=== PATIENT | male | born 1990 | race Caucasian/White ===

== ENCOUNTER 2016-05-24 08:08 | Emergency (ER) | payer SELFPAY ==
[~2016-05-24] VITALS: Ht 175.3 cm; Wt 85.0 kg
[2016-05-24 08:11] VITALS: BP 147/95; PULSE 87; RESP 14; TEMP 98.1; O2SAT 99
--- NOTE | 2016-05-24 08:24 | PD ---
HPI Chief Complaint: Back/ Neck Pain or Injury Time Seen by Provider: 08:24 Travel History International Travel<30 days: No Contact w/Intl Traveler<30days: No Traveled to known affect area: No History of Present Illness HPI 26-year-old male, with history of chronic low back pain, presents to the emergency Department with complaint of low back pain last few days. He denies traumatic injury. 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 Denies encopresis, incontinence, saddle anesthesias. Denies paresthesias, loss of sensation, decreased range of motion, decreased strength of bilateral lower extremity's. Denies difficulty with ambulation. Denies IV drug use. Denies cancer. Denies fever, chills, nausea, vomiting. Has not taken any medications or tried any treatments to review his symptoms. Pain is worse with certain movements and walking. Pain radiates down the back of his left leg. Symptoms are consistent with past exacerbations of low back pain. Allergies to codeine. No other modifying factors or associated signs and symptoms. PFSH Past Medical History ADHD: Yes Cancer: No Diminished Hearing: No Psychiatric: Yes (PT HAS ADHD) Seizures: No Thyroid Disease: No Ulcer: No Social History Alcohol Use: No Tobacco Use: Yes (1 PACK IN THREE DAYS) Substance Use: No Allergies-Medications (Allergen,Severity, Reaction): Coded Allergies: Codeine (Verified Allergy, Mild, 06/11/07) Reported Meds & Prescriptions Reported Meds & Active Scripts Active Robaxin (Methocarbamol) 500 Mg Tab 500 Mg PO QID PRN Ibuprofen 800 Mg Tab 800 Mg PO Q6HR PRN Review of Systems Except as stated in HPI: all other systems reviewed are Neg Physical Exam Narrative GENERAL: Well-nourished, well-developed male patient, in no acute distress; afebrile, nontoxic-appearing SKIN: Warm and dry. HEAD: Atraumatic. Normocephalic. EYES: Pupils equal and round. No scleral icterus. No injection or drainage. ENT: Mucosa pink and moist. Airway patent. NECK: Trachea midline. CARDIOVASCULAR: Regular rate and rhythm. No murmur appreciated. RESPIRATORY: No accessory muscle use. Breath sounds clear and equal bilaterally. GASTROINTESTINAL: Abdomen soft, non-tender, nondistended. Positive bowel sounds. No hepato-splenomegaly, or palpable masses. No guarding. MUSCULOSKELETAL: Bilateral lower extremities supple and non-tense with 2+ pedal pulses and sensory intact; with full range of motion and 5/5 strength. Active dorsiflexion and extension of bilateral feet. Right straight leg raise is negative for low back pain. Left straight leg raise is positive for low back pain. Ambulatory with normal gait. Sitting up in bed at 90. No obvious deformities. No clubbing. No cyanosis. No edema. BACK: No midline point tenderness on palpation of the lumbar spine. Tenderness on palpation of left paraspinal and iliosacral area. No obvious deformities. NEUROLOGICAL: Awake and alert. Oriented 3. No obvious cranial nerve deficits. Motor grossly within normal limits. Normal speech. Moves all extremities. 5/5 strength to all extremities. Sensory intact. PSYCHIATRIC: Appropriate mood and affect; insight and judgment normal. Data Data Last Documented VS Vital Signs Date Time Temp Pulse Resp B/P Pulse Ox O2 Delivery O2 Flow Rate FiO2 05/24/16 08:11 98.1 87 14 147/95 99 Orders Ketorolac Inj (Toradol Inj) (05/24/16 08:30) Orphenadrine Inj (Norflex Inj) (05/24/16 08:30) [facility] Medical Decision Making Medical Screen Exam Complete: Yes Emergency Medical Condition: Yes Medical Record Reviewed: Yes Differential Diagnosis Acute exacerbation of chronic low back pain, sciatica, low back strain Narrative Course 26-year-old male physical exam and history of present illness consistent with acute exacerbation of chronic low back pain and left-sided sciatica. Denies new or recent injury. No midline point tenderness on palpation of the lumbar spine. Denies IV drug use. Denies cancer. Denies encopresis, incontinence, saddle anesthesias. Toradol and Norflex administered in the ER. Ibuprofen and Robaxin prescribed for home. Patient verbalizes understanding and agreement with treatment plan. Patient is medically cleared and stable for discharge. Discussed reasons to return to the emergency department. Instructed patient to follow up with primary care provider. Patient agrees with treatment plan. The patients vital signs are stable and the patient is stable for outpatient follow- up and treatment. Patient discharged home, stable and in no acute distress. Diagnosis Primary Impression: Acute exacerbation of chronic low back pain Additional Impression: Left sided sciatica Referrals: Primary Care Physician Patient Instructions: Acute Low Back Pain (ED), General Instructions, Sciatica (ED) Departure Forms: Tests/Procedures, Work Release Enter return to work date: May 25, 2016 Additional Instructions: Tylenol or ibuprofen as directed and as needed for pain Robaxin as prescribed and as needed for muscle spasm Heating pad and/or ice to affected area to reduce pain Avoid aggravating activities; increase activity as tolerated Follow-up with primary care provider Return to emergency department immediately with worsening of symptoms Med/Other Pt SpecificInfo: Prescription(s) given Scripts Methocarbamol (Robaxin)500 Mg [id number] Mg PO QID PRN (MUSCLE SPASM) #30 TAB Ref 0 Prov:Samara Dalton 05/24/16 Ibuprofen 800 Mg [id number] Mg PO Q6HR PRN (PAIN) #30 TAB Ref 0 Prov:Samara Dalton 05/24/16 Disposition: 01 DISCHARGE HOME Condition: Stable Samara Dalton May 24, 2016 08:24
[2016-05-24] MEDS ORDERED: IBUP800T23 PO (08:27)
[2016-05-24] MEDS ORDERED: ROBA500T PO (08:27)
[2016-05-24] MEDS ORDERED: ORPHENADRINE INJ 60 MG/2 ML AMP IM ONE (08:30)
[2016-05-24] MEDS ORDERED: KETOROLAC TROMETHAMINE 60 MG/2 ML (IM) VIAL IM ONE (08:30)
== END 2016-05-24 08:40 | disposition home or self-care (01) ==
LOC: NEPB 08:08
DX: M54.5 Low back pain (principal); G89.29 Other chronic pain; M54.32 Sciatica, left side; Z72.0 Tobacco use; Z86.59 Personal history of other mental and behavioral disorders
CPT/HCPCS: 96372; 99283; J1885; J2360

== ENCOUNTER 2016-06-02 05:46 | Emergency (ER) | payer SELFPAY ==
[~2016-06-02] VITALS: Ht 175.3 cm; Wt 83.5 kg
[~2016-06-02 05:46] MED LIST: IBUP800T23 PO; ROBA500T PO
[2016-06-02 05:50] VITALS: BP 124/86; PULSE 83; RESP 16; TEMP 98.3; O2SAT 98
[2016-06-02 06:03] VITALS: BP 124/86; PULSE 83; RESP 16; TEMP 98.3; O2SAT 98
[2016-06-02] MEDS ORDERED: KETOROLAC TROMETHAMINE 60 MG/2 ML (IM) VIAL IM ONE (06:45)
--- NOTE | 2016-06-02 06:47 | PD ---
HPI Chief Complaint: Pain: Acute or Chronic Time Seen by Provider: 06:36 Travel History International Travel<30 days: No Contact w/Intl Traveler<30days: No Traveled to known affect area: No History of Present Illness HPI 26-year-old male presents to the emergency department for exacerbation of chronic recurrent low back pain. Patient reports that he has a history of disc disease and causes him to have referred pain to the lower extremities. Patient denies any recent injury. Patient denies any bladder or bowel dysfunction or saddle anesthesia. Patient denies any numbness tingling or weakness of the lower extremity. Patient states that he is currently in a drug rehabilitation program 6 months to the [place] that does not allow the patient's to have any medications unless they're administered by a physician through a clinic or ER visit. Patient states that he is not allowed reportedly to have access to Tylenol or ibuprofen at the rehabilitation facility therefore was brought to the emergency room for medication. Patient denies other concerns or complaints. Patient reports his discomfort as 7/10 in intensity. Patient is able to ambulate about the exam room and stand up and down to sit up on the exam table with fluid movement but states his pain is his chronic pain and is here specifically to be given a one-time dose of medication for his discomfort and that he is returning to the rehabilitation facility. Patient presents with paperwork from the rehabilitation facility to be signed to confirm the patient was evaluated and treated in the emergency department. [facility] Past Medical History Narrative Medical ADHD, chronic pain syndrome, low back pain, tobacco use; nursing notes reviewed ADHD: Yes Cancer: No Diminished Hearing: No Psychiatric: Yes (PT HAS ADHD) Seizures: No Thyroid Disease: No Ulcer: No Tetanus Vaccination: < 5 Years Influenza Vaccination: No Past Surgical History Other Surgery: No Social History Alcohol Use: No Tobacco Use: Yes (1PPD) Substance Use: No Allergies-Medications (Allergen,Severity, Reaction): Coded Allergies: No Known Allergies (Unverified , 06/02/16) Reported Meds & Prescriptions Reported Meds & Active Scripts Active No Active Prescriptions or Reported Medications Review of Systems Except as stated in HPI: all other systems reviewed are Neg General / Constitutional: No: Fever HENT: No: Congestion Cardiovascular: No: Chest Pain or Discomfort Respiratory: No: Shortness of Breath Gastrointestinal: No: Abdominal Pain Genitourinary: No: Flank Pain Musculoskeletal: Positive: Myalgias, Arthralgias, Pain (chronic recurrent low back pain) Skin: No Rash Neurologic: No: Weakness Psychiatric: No: Anxiety Endocrine: No: Heat Intolerance Hematologic/Lymphatic: No: Easy Bruising Physical Exam Narrative GENERAL: Well-developed well-nourished male in no acute distress no respiratory distress GCS 15 SKIN: Warm and dry. HEAD: Normocephalic. EYES: No scleral icterus. No injection or drainage. NECK: Supple, trachea midline. No JVD or lymphadenopathy. CARDIOVASCULAR: Regular rate and rhythm without murmurs, gallops, or rubs. RESPIRATORY: Breath sounds equal bilaterally. No accessory muscle use. GASTROINTESTINAL: Abdomen soft, non-tender, nondistended. MUSCULOSKELETAL: No cyanosis, or edema. BACK: Nontender without obvious deformity. No CVA tenderness. Negative straight leg raising. DTRs 2+ and symmetric bilateral upper extremity is in lower extremities. Data Data Last Documented VS Vital Signs Date Time Temp Pulse Resp B/P Pulse Ox O2 Delivery O2 Flow Rate FiO2 06/02/16 06:06 16 06/02/16 06:03 98.3 83 124/86 98 06/02/16 05:50 Room Air Orders Ketorolac Inj (Toradol Inj) (06/02/16 06:45) MDM Medical Decision Making Medical Screen Exam Complete: Yes Emergency Medical Condition: Yes Medical Record Reviewed: Yes Differential Diagnosis Chronic pain syndrome, sciatica, lumbar radiculopathy Narrative Course Patient presents with chronic recurrent low back pain related to history of lumbar disc disease requesting pain medication that is nonnarcotic as he is part of a rehabilitation program that specifically states he cannot have narcotics and reports that he is not able to receive ibuprofen or acetaminophen at the facility unless administered by a physician. Patient offered a one-time dose of Toradol 60 mg IM which she accepts. Patient is otherwise stable for outpatient management no prescriptions provided. Diagnosis Primary Impression: Acute exacerbation of chronic low back pain Referrals: Primary Care Physician call for appointment Patient Instructions: General Instructions Additional Instructions: Follow-up with your primary care provider as needed Return to the emergency department for any concerns or change in condition Scripts No Active Prescriptions or Reported Meds Disposition: 01 DISCHARGE HOME Condition: Stable Corina Damon MD Jun 02, 2016 06:47
[2016-06-02 06:59] VITALS: BP 136/80
== END 2016-06-02 07:03 | disposition home or self-care (01) ==
LOC: PHED 05:46
DX: M54.5 Low back pain (principal); G89.29 Other chronic pain; F17.200 Nicotine dependence, unspecified, uncomplicated; Z87.39 Personal history of other diseases of the musculoskeletal system and connective tissue; Z86.59 Personal history of other mental and behavioral disorders
CPT/HCPCS: 96372; 99283; J1885

== ENCOUNTER 2016-06-04 12:21 | Emergency (ER) | payer SELFPAY ==
[~2016-06-04] VITALS: Ht 175.3 cm; Wt 86.0 kg
[2016-06-04 12:23] VITALS: BP 180/119; PULSE 75; RESP 16; TEMP 98; O2SAT 99
[2016-06-04] MEDS ORDERED: IBUP800T23 PO (16:08)
== END 2016-06-04 12:26 | disposition left against medical advice (07) ==
LOC: NED 12:21
DX: M54.9 Dorsalgia, unspecified (principal)
CPT/HCPCS: 99281

== ENCOUNTER 2016-06-04 15:12 | Emergency (ER) | payer SELFPAY ==
[~2016-06-04] VITALS: Ht 175.3 cm; Wt 90.0 kg
[2016-06-04 15:14] VITALS: BP 175/102; PULSE 78; RESP 18; TEMP 97.8; O2SAT 100
[2016-06-04] MEDS ORDERED: IBUP800T23 PO (16:08)
--- NOTE | 2016-06-04 16:08 | PD ---
HPI Chief Complaint: Pain: Acute or Chronic Time Seen by Provider: 16:03 Travel History International Travel<30 days: No Contact w/Intl Traveler<30days: No Traveled to known affect area: No History of Present Illness HPI Patient is a 26-year-old male presenting to the emergency department for a duplicate prescription for ibuprofen. Patient states he is residing at the [facility] drug treatment program and is not allowed to have medications. He states he was prescribed ibuprofen 2 weeks ago but they took the prescription and lost it. Patient was evaluated twice since that time for low back pain. He has no new injury or trauma. He reports a history of herniated and bulging disks. He denies any numbness tingling in his extremities, no bladder or bowel incontinent, no saddle paresthesia. PFSH Past Medical History ADHD: Yes Cancer: No Diminished Hearing: No Psychiatric: Yes (PT HAS ADHD) Seizures: No Thyroid Disease: No Ulcer: No Past Surgical History Other Surgery: No Social History Alcohol Use: No Tobacco Use: Yes (1PPD) Substance Use: No Allergies-Medications (Allergen,Severity, Reaction): Coded Allergies: No Known Allergies (Unverified , 06/02/16) Reported Meds & Prescriptions Reported Meds & Active Scripts Active No Active Prescriptions or Reported Medications Review of Systems Except as stated in HPI: all other systems reviewed are Neg Musculoskeletal: Positive: Myalgias Physical Exam Narrative GENERAL: Well-developed, well-nourished, alert male. Observed ambulating in the emergency department without difficulty. SKIN: Warm and dry. HEAD: Normocephalic. EYES: No scleral icterus. No injection or drainage. NECK: Supple, trachea midline. No JVD or lymphadenopathy. CARDIOVASCULAR: Regular rate and rhythm without murmurs, gallops, or rubs. RESPIRATORY: Breath sounds equal bilaterally. No accessory muscle use. GASTROINTESTINAL: Abdomen soft, non-tender, nondistended. MUSCULOSKELETAL: No cyanosis, or edema. BACK: Nontender without obvious deformity. No CVA tenderness. Data Data Last Documented VS Vital Signs Date Time Temp Pulse Resp B/P Pulse Ox O2 Delivery O2 Flow Rate FiO2 06/04/16 15:14 97.8 78 18 175/102 100 Room Air MDM Medical Decision Making Medical Screen Exam Complete: Yes Emergency Medical Condition: No Interpretation(s) Vital Signs Date Time Temp Pulse Resp B/P Pulse Ox O2 Delivery O2 Flow Rate FiO2 06/04/16 15:14 97.8 78 18 175/102 100 Room Air Differential Diagnosis Chronic back pain versus medication refill versus malingering versus other Narrative Course Patient is a 26-year-old male presenting to the emergency department again for medication for his chronic low back pain. He was seen and evaluated in the department 2 days ago as well as 2 weeks ago approximately, he was prescribed ibuprofen but states [facility] [place] [employer] took the prescription and lost it or will not give it to him. Attempted several times to call the [facility] drug treatment program with no success. We'll provide a refill of the ibuprofen. Patient was advised to follow-up with primary care or return to emergency department new or worsening symptoms. He verbalized understanding of these instructions. Patient is stable for discharge. Diagnosis Primary Impression: Back pain Qualified Code: M54.5 - Chronic low back pain, unspecified back pain laterality, with sciatica presence unspecified Referrals: Primary Care Physician Patient Instructions: Back Pain (ED), General Instructions Additional Instructions: Follow-up with your primary doctor Take medications as directed Return to emergency department for any new or worsening symptoms Med/Other Pt SpecificInfo: Prescription(s) given Scripts Ibuprofen 800 Mg [id number] Mg PO Q6HR PRN (PAIN) #30 TAB Ref 0 Prov:Cristina Reilly 06/04/16 Disposition: 01 DISCHARGE HOME Condition: Stable Cristina Reilly Jun 04, 2016 16:08
== END 2016-06-04 16:28 | disposition home or self-care (01) ==
LOC: NEPB 15:12
DX: M54.5 Low back pain (principal); F17.210 Nicotine dependence, cigarettes, uncomplicated
CPT/HCPCS: 99281

== ENCOUNTER 2016-06-16 23:39 | Emergency (ER) | payer SELFPAY ==
[~2016-06-16] VITALS: Ht 175.3 cm; Wt 82.0 kg
[~2016-06-16 23:39] MED LIST changes: -ROBA500T PO
[2016-06-16 23:53] VITALS: BP 119/79; PULSE 89; RESP 16; TEMP 98.4; O2SAT 96
[2016-06-17 00:19] VITALS: BP 119/79; PULSE 89; RESP 18; TEMP 98.4; O2SAT 96
[2016-06-17] MEDS ORDERED: MOTR200T4 PO (00:51)
[2016-06-17] MEDS ORDERED: ULTR50TA5 PO (00:51)
--- NOTE | 2016-06-17 00:52 | PD ---
HPI Chief Complaint: Injury Time Seen by Provider: 00:44 Travel History International Travel<30 days: No Contact w/Intl Traveler<30days: No Traveled to known affect area: No History of Present Illness HPI 26-year-old male patient presents to the ER after punching the wall with his right hand 2 days ago, complains of pain at the right pinky finger, having difficulty moving it without pain. He states the pain is currently an 8 out of 10. He denies any other issues or injuries. Modifying Factors: None Associated Signs & Symptoms: Right hand injury Risk Factors: None PFSH Past Medical History ADHD: Yes Cancer: No Diminished Hearing: No Psychiatric: Yes (PT HAS ADHD) Immunizations Current: Yes Seizures: No Thyroid Disease: No Ulcer: No Tetanus Vaccination: < 5 Years Influenza Vaccination: No Past Surgical History Other Surgery: No Social History Alcohol Use: No Tobacco Use: Yes (1PPD) Substance Use: No Allergies-Medications (Allergen,Severity, Reaction): Coded Allergies: No Known Allergies (Unverified , 06/17/16) Reported Meds & Prescriptions Reported Meds & Active Scripts Active No Active Prescriptions or Reported Medications Review of Systems Except as stated in HPI: all other systems reviewed are Neg Physical Exam Narrative GENERAL: This is a well-nourished, well-developed young white male patient patient, in no apparent distress. Right hand: There is notable edema and tenderness to palpation of the right metacarpal area. Neurovascularly intact below the injury. No wrist tenderness to palpation. Data Data Last Documented VS Vital Signs Date Time Temp Pulse Resp B/P Pulse Ox O2 Delivery O2 Flow Rate FiO2 06/17/16 00:21 89 18 96 Room Air 06/17/16 00:19 98.4 119/79 Orders Hand, Complete ([id number]) (06/17/16 ) Splint Or Brace Apply/Monitor (06/17/16 00:44) [facility] Medical Decision Making Medical Screen Exam Complete: Yes Emergency Medical Condition: Yes Medical Record Reviewed: Yes Differential Diagnosis Fracture versus contusion Narrative Course X-ray reveals a right fifth metacarpal boxer's fracture. Patient is placed in a ulnar splint and sling, would follow-up to hand. Return for any worsening in pain or new symptoms as needed. The plan was discussed the patient and he states understanding. Diagnosis Primary Impression: Boxers fracture Referrals: Malinda Gilbert MD Med/Other Pt SpecificInfo: Prescription(s) given Scripts Ibuprofen (Motrin Ib)200 Mg [id number] Mg PO Q6H PRN (PAIN SCALE 1 TO 10) #20 TAB Ref 0 Prov:Kandis Montero MD 06/17/16 Tramadol (Ultram)50 Mg Tab50 Mg PO Q6H PRN (PAIN) #12 TAB Ref 0 Prov:Kandis Montero MD 06/17/16 Disposition: 01 DISCHARGE HOME Condition: Stable Kandis Montero MD Jun 17, 2016 00:52
--- NOTE | 2016-06-17 00:55 | RADHPO ---
EXAM DATE/TIME: 06/17/2016 00:31 [facility] COMPARISON: No previous studies available for comparison. INDICATIONS : Right hand pain from injury 2 days ago. MEDICAL HISTORY : None. SURGICAL HISTORY : None. ENCOUNTER: Initial ACUITY: 2 days PAIN SCORE: 8/10 LOCATION: Right Hand FINDINGS: 3 views of the right hand reveal no acute nondisplaced fracture involving the head of the fifth metac arpal. 10 of angulation noted. Dorsal soft tissue swelling seen. CONCLUSION: Acute fifth metacarpal fracture. Stanford Mosley Jr., MD on June 17, 2016 at 0:53 Board Certified Radiologist. This report was verified electronically.
[2016-06-17] MEDS ORDERED: traMADol/ACETAMINOPHEN 37.5/325 1 TAB PO ONE (01:00)
[2016-06-17 01:33] VITALS: BP 132/78
[2016-06-17 01:37] VITALS: RESP 18
== END 2016-06-17 01:38 | disposition home or self-care (01) ==
LOC: PHED 23:39
DX: S62.396A Other fracture of fifth metacarpal bone, right hand, initial encounter for closed fracture (principal); F17.200 Nicotine dependence, unspecified, uncomplicated; Z86.59 Personal history of other mental and behavioral disorders; W22.09XA Striking against other stationary object, initial encounter
CPT/HCPCS: 29125; 73130

== ENCOUNTER 2016-06-27 18:13 | Emergency (ER) | payer SELFPAY ==
[~2016-06-27 18:13] MED LIST changes: -IBUP800T23 PO; +MOTR200T4 PO; +ULTR50TA5 PO
[2016-06-27] MEDS ORDERED: KETOROLAC TROMETHAMINE 30 MG/ML (IVP) VIAL IV PUSH ONE (18:30)
[2016-06-27] MEDS ORDERED: SODIUM CHLORIDE 0.9% FLUSH 10 ML FLUSH IVF PRN (18:30)
[2016-06-27 18:39] LABS: BASOPHIL # 0.4 TH/MM3 (0-0.2); BASOPHIL % 3.5 % (0.0-2.0); EOSINOPHIL # 0.1 TH/MM3 (0-0.4); EOSINOPHIL % 0.6 % (0.0-4.0); HEMATOCRIT 43.7 % (39.0-51.0); HEMO FLAGS DIFF FINAL; LYMPH % 29.9 % (9.0-44.0); MEAN CELL VOLUME 86.4 FL (80.0-100.0); MEAN CORPUSCULAR HEMOGLOBIN 29.3 PG (27.0-34.0); MONO % 6.3 % (0.0-8.0); NEUT % 59.7 % (16.0-70.0); PLATELET COUNT 269 TH/MM3 (150-450); RED BLOOD COUNT 5.06 MIL/MM3 (4.50-5.90); RED CELL DISTRIBUTION WIDTH 12.6 % (11.6-17.2); WHITE BLOOD COUNT 10.1 TH/MM3 (4.0-11.0)
[2016-06-27 18:48] LABS: CHLORIDE 104 MEQ/L (98-107); POTASSIUM 3.9 MEQ/L (3.5-5.1); SODIUM (NA) 139 MEQ/L (136-145)
[2016-06-27 18:51] LABS: ANION GAP 12 MEQ/L (5-15); BICARBONATE 23.4 MEQ/L (21.0-32.0); BLOOD UREA NITROGEN 16 MG/DL (7-18)
[2016-06-27] MEDS ORDERED: OXYC-395 PO (18:51)
--- NOTE | 2016-06-27 18:52 | RADHPO ---
EXAM DATE/TIME: 06/27/2016 18:34 [facility] COMPARISON: No previous studies available for comparison. INDICATIONS : Left side chest pain today. MEDICAL HISTORY : None. SURGICAL HISTORY : None. ENCOUNTER: Initial ACUITY: 1 day PAIN SCORE: 9/10 LOCATION: Left chest FINDINGS: PA and lateral views of the chest demonstrate the lungs to be symmetrically aerated without evidence of mass, infiltrate or effusion. The cardiomediastinal contours are unremarkable. Osseous structure s are intact. CONCLUSION: No acute disease. Yoel Lynch MD on June 27, 2016 at 18:50 Board Certified Radiologist. This report was verified electronically.
[2016-06-27 18:54] LABS: GLOMERULAR FILTRATION RATE 80 ML/MIN (>89)
[2016-06-27 18:57] LABS: CREATINE KINASE 413 U/L (39-308)
[2016-06-27 18:58] LABS: APTT (PATIENT) 26.4 SEC (24.3-30.1); PROTHROMBIN TIME - PATIENT 11.1 SEC (9.8-11.6)
[2016-06-27 18:59] VITALS: O2SAT 98
[2016-06-27 19:10] LABS: CKMB 3.7 NG/ML (0.5-3.6)
[2016-06-27] MEDS ORDERED: MORPHINE SULFATE 4 MG/ML INJ IV PUSH ONE (20:00)
[2016-06-27] MEDS ORDERED: SODIUM CHLOR 0.9% 1000 ML INJ 1,000 ML IV ONE (20:00)
--- NOTE | 2016-06-27 20:20 | PD ---
HPI Chief Complaint: Chest Pain Time Seen by Provider: 18:27 Travel History International Travel<30 days: No Contact w/Intl Traveler<30days: No Traveled to known affect area: No History of Present Illness HPI Patient is a 26 year old male who comes in complaining of left sided chest pain and numbness that started just prior to arrival. He says he was sitting on the couch watching television when the pain started. He says it radiates into his left shoulder. He denies any SOB or nausea. He has never had pain like this before. He denies any cocaine or stimulant use. He denies any family history of early cardiac disease. He says he was lifting a very heavy dresser by himself this morning. He denies cough or fever. 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) Allergies-Medications (Allergen,Severity, Reaction): Coded Allergies: No Known Allergies (Unverified , 06/17/16) Reported Meds & Prescriptions Reported Meds & Active Scripts Active Reported Oxycodone (Oxycodone HCl) 10 Mg Tab 10 Mg PO Q4HR Review of Systems Except as stated in HPI: all other systems reviewed are Neg General / Constitutional: No: Fever, Chills HENT: No: Headaches, Lightheadedness Cardiovascular: Positive: Chest Pain or Discomfort Respiratory: No: Cough, Shortness of Breath Gastrointestinal: No: Nausea Musculoskeletal: No: Edema Skin: No Rash, No Change in Pigmentation Neurologic: No: Weakness, Dizziness Physical Exam Narrative GENERAL: Awake and alert, in no acute distress. SKIN: Focused skin assessment warm/dry. HEAD: Atraumatic. Normocephalic. EYES: Pupils equal and round. No scleral icterus. ENT: Mucous membranes pink and moist. NECK: Trachea midline. No JVD. CARDIOVASCULAR: Regular rate and rhythm. No murmur appreciated. No chest wall tenderness. RESPIRATORY: No accessory muscle use. Clear to auscultation. Breath sounds equal bilaterally. GASTROINTESTINAL: Abdomen soft, non-tender, nondistended. MUSCULOSKELETAL: No obvious deformities. No clubbing. No cyanosis. No edema. NEUROLOGICAL: Awake and alert. No obvious cranial nerve deficits. Motor grossly within normal limits. Normal speech. PSYCHIATRIC: Appropriate mood and affect; insight and judgment normal. Data Data Last Documented VS Vital Signs Date Time Temp Pulse Resp B/P Pulse Ox O2 Delivery O2 Flow Rate FiO2 06/27/16 22:43 76 20 98 06/27/16 20:32 131/80 06/27/16 18:59 Room Air Orders Basic Metabolic Panel (Bmp) (06/27/16 18:27) Ckmb (Isoenzyme) Profile (06/27/16 18:27) Complete Blood Count With Diff (06/27/16 18:) D-Dimer (06/27/16:) Prothrombin Time / Inr (Pt) (06/27/16 18:) Act Partial Throm Time (Ptt) (06/27/16 18:) Troponin I (06/27/16 18:) Ecg Monitoring (06/27/16 18:27) Bilateral Bp Monitoring (06/27/16 18:) Iv Access Insert/Monitor (06/27/16 18:) Oximetry (06/27/16 18:27) Oxygen Administration (06/27/16 18:) Sodium Chloride 0.9% Flush (Ns Flush) (06/27/16 18:30) Chest, Pa & Lat (06/27/16 18:27) Ketorolac Inj (Toradol Inj) (06/27/16 18:30) CKMB (06/27/16 18:30) CKMB% (06/27/16 18:30) Sodium Chlor 0.9% 1000 Ml Inj (Ns 1000 M (06/27/16 20:00) Morphine Inj (Morphine Inj) (06/27/16 20:00) Electrocardiogram (06/27/16 18:14) Ckmb (Isoenzyme) Profile (06/27/16 21:44) Troponin I (06/27/16 21:44) CKMB (06/27/16 21:50) CKMB% (06/27/16 21:50) Labs Laboratory Tests Test 06/27/16 06/27/16 18:30 21:50 White Blood Count 10.1 TH/MM3 Red Blood Count 5.06 MIL/MM3 Hemoglobin 14.8 GM/DL Hematocrit 43.7 % Mean Corpuscular Volume 86.4 FL Mean Corpuscular Hemoglobin 29.3 PG Mean Corpuscular Hemoglobin 34.0 % Concent Red Cell Distribution Width 12.6 % Platelet Count 269 TH/MM3 Mean Platelet Volume 8.6 FL Neutrophils (%) (Auto) 59.7 % Lymphocytes (%) (Auto) 29.9 % Monocytes (%) (Auto) 6.3 % Eosinophils (%) (Auto) 0.6 % Basophils (%) (Auto) 3.5 % Neutrophils # (Auto) 6.0 TH/MM3 Lymphocytes # (Auto) 3.0 TH/MM3 Monocytes # (Auto) 0.6 TH/MM3 Eosinophils # (Auto) 0.1 TH/MM3 Basophils # (Auto) 0.4 TH/MM3 CBC Comment DIFF FINAL Differential Comment Prothrombin Time 11.1 SEC Prothromb Time International 1.0 RATIO Ratio Activated Partial 26.4 SEC Thromboplast Time D-Dimer Quantitative (PE/DVT) 0.21 MG/L FEU Sodium Level 139 MEQ/L Potassium Level 3.9 MEQ/L Chloride Level 104 MEQ/L Carbon Dioxide Level 23.4 MEQ/L Anion Gap 12 MEQ/L Blood Urea Nitrogen 16 MG/DL Creatinine 1.10 MG/DL Estimat Glomerular Filtration 80 ML/MIN Rate Random Glucose 125 MG/DL Calcium Level 8.7 MG/DL Total Creatine Kinase 413 U/L 330 U/L Creatine Kinase MB 3.7 NG/ML 2.9 NG/ML Creatine Kinase MB % 0.9 % 0.9 % Troponin I LESS THAN 0.02 LESS THAN 0.02 NG/ML NG/ML [facility] Medical Decision Making Medical Screen Exam Complete: Yes Emergency Medical Condition: Yes Medical Record Reviewed: Yes Interpretation(s) ECG shows normal sinus rhythm at 86, no ST elevation or depression, normal intervals, large artifact. Differential Diagnosis Muscle strain versus pneumonia versus costochondritis versus ACS Narrative Course Patient is a 26-year-old male who comes in complaining of left-sided chest pain. Exam shows no acute abnormalities. IV established, labs sent. Patient connected to the potline monitor. Labs show a slight elevation in his total CK of 413, troponin and d-dimer are negative. Patient was given IV fluids, Toradol, small dose of morphine. Troponin and CK were repeated 2 hours later, they're negative. Patient reports feeling much better. He is advised to stop smoking cigarettes. Patient advised to follow-up in the community clinic. Advised to return to the ED as needed for any worsening symptoms. Patient and significant other are comfortable with discharge at this time. Diagnosis Primary Impression: Chest pain Qualified Code: R07.9 - Chest pain, unspecified type Referrals: [facility] call for appointment [facility] call for appointment Patient Instructions: Chest Pain (ED), General Instructions Additional Instructions: Follow up in the community clinic. Try to quit smoking. Rest and take Ibuprofen as needed for pain. Return to the ED as needed for any worsening symptoms. Disposition: 01 DISCHARGE HOME Condition: Stable Bindu Burgess MD Jun 27, 2016 20:20
[2016-06-27 20:32] VITALS: BP 131/80; PULSE 74; RESP 20; O2SAT 98
[2016-06-27 22:14] LABS: CREATINE KINASE 330 U/L (39-308)
[2016-06-27 22:27] LABS: CKMB 2.9 NG/ML (0.5-3.6)
--- NOTE | 2016-06-27 22:55 | EKG ---
Date Performed: 06/27/2016 Time Performed: 18:14:28 PTAGE: 26 years EKG: Sinus rhythm . Normal ECG PREVIOUS TRACING : 10/20/1997 08.24 Compared to previous tracing, nonspecific anterior T wave a bnormality is no longer present. DOCTOR: Sabino Figueroa Interpretating Date/Time 06/27/2016 22:54:25
== END 2016-06-27 22:44 | disposition home or self-care (01) ==
LOC: PHED 18:13
DX: R07.9 Chest pain, unspecified (principal); R20.0 Anesthesia of skin
CPT/HCPCS: 71020; 80048; 82550; 82552; 84484; 85025; 85379; 85610; 85730; 93005; 96361; 96374; 96375; 99285; J1885; J2270; J7030